=== PATIENT | female | born 1980 | race Two or more races ===

== ENCOUNTER 2019-04-16 06:10 | Inpatient (IN) | payer MEDICAID ==
[~2019-04-16] VITALS: Ht 157.5 cm; Wt 79.8 kg
[2019-04-16] MEDS ORDERED: fentaNYL PF VIAL 100 MCG/2 ML VIAL IV PRN ×3 (06:15)
[2019-04-16] MEDS ORDERED: OXYTOCIN 30 UNIT/500 ML PREMIX 500 ML IV PRN ×3 (06:15→12:45)
[2019-04-16] MEDS ORDERED: CITRIC ACID/SODIUM CITRATE 30 ML SOLUTION. PO PRN (06:15)
[2019-04-16] MEDS ORDERED: ONDANSETRON PF 4 MG/2 ML VIAL. IV PRN (06:15)
[2019-04-16] MEDS ORDERED: 0.9 % SODIUM CHLORIDE 10 ML DISP.SYRIN. IV PRN ×2 (06:15→12:45)
[2019-04-16] MEDS ORDERED: MAG HYDROX/ALUMINUM HYD/SIMETH 30 ML ORAL.SUSP PO PRN ×2 (06:15→12:45)
[2019-04-16] MEDS ORDERED: TERBUTALINE 1 MG/ML VIAL. SQ PRN (06:15)
[2019-04-16] MEDS ORDERED: BUTORPHANOL 2 MG/ML VIAL. IV PRN ×2 (06:15)
[2019-04-16] MEDS ORDERED: IBUPROFEN 400 MG TABLET. PO PRN ×2 (06:15→12:45)
[2019-04-16] MEDS ORDERED: NALBUPHINE 10 MG/ML AMPUL. IV PRN ×2 (06:15)
[2019-04-16] MEDS ORDERED: LIDOCAINE 1% PF 30 ML VIAL. INJ PRN (06:30)
[2019-04-16 07:15] LABS: BILIRUBIN,URINE NEGATIVE (NEG); CLARITY,URINE CLEAR; COLOR,URINE YELLOW; NITRITE,URINE NEGATIVE (NEG); PROTEIN,URINE NEGATIVE (NEG-TRACE); UROBILINOGEN,URINE 0.2 mg/dL (0.2 mg/dL)
[2019-04-16 07:37] LABS: SQUAMOUS EPITHELIAL CELL,UR MOD /LPF
[2019-04-16 07:38] LABS: BACTERIA,URINE MODERATE /HPF (0-FEW); RBC,URINE 0 /HPF (0-2)
[2019-04-16 07:50] VITALS: BP 122/74
[2019-04-16] MEDS ORDERED: AMPICILLIN SODIUM 2 GM in IV NORMAL SALINE 100ML 100 ML IV ONE (08:00)
[2019-04-16 08:02] LABS: BASO % 1 % (0-3); EOS % 1 % (0-3); HEMATOCRIT 36.3 % (36.0-47.0); LYMPH # 1.6 x10^3/uL (1.0-4.8); LYMPH % 26 % (24-48); MEAN CORPUSCULAR HEMOGLOBIN 30 pg (25-35); MEAN CORPUSCULAR HGB CONC 33 g/dL (31-37); MEAN CORPUSCULAR VOLUME 91 fL (79-100); MONO # 0.5 x10^3/uL (0.0-1.1); MONO % 8 % (0-9); NEUT # 4.1 x10^3/uL (1.8-7.7); NEUT % 65 % (31-73); PLATELET COUNT 121 x10^3/uL (140-400); RED BLOOD COUNT 3.99 x10^6/uL (3.50-5.40); RED CELL DISTRIBUTION WIDTH 15.6 % (11.5-14.5); WHITE BLOOD COUNT 6.2 x10^3/uL (4.0-11.0)
[2019-04-16] MEDS: IV RINGERS,LACTATED 1000ML 1,000 ML IV SCH ×2 (08:02→22:30)
--- NOTE | 2019-04-16 09:54 | RAD ---
EXAM: Obstetrics sonogram. HISTORY: presentation. TECHNIQUE: Sonographic imaging of a gravid uterus was performed. COMPARISON: None. FINDINGS: There is a single intrauterine fetus in cephalic presentation with a heart rate of 127 bpm. There is body motion. The anatomy is not formally assessed. There is a grade 2 fundal placenta without evidence of placenta previa. The biparietal diameter is 9.32 cm, corresponding with 37 weeks and 6 days. The head circumference is 34.03 cm, corresponding with 39 weeks and 1 day. The abdominal circumference is 35.79 cm, corresponding with 39 weeks and 5 days. The femoral length is 7.48 cm, corresponding with 38 weeks and 2 days. The estimated gestational age patient combined ultrasound measurements is 38 weeks and 5 days and the estimated weight is 3686 g. This is the 69th percentile for an estimated gestational age of 39 weeks and 1 day based on LMP. The estimated due date is 04/25/2019. IMPRESSION: Single intrauterine fetus in cephalic presentation with a normal heart rate and estimated gestational age based on ultrasound measurements of 38 weeks and 5 days. Electronically signed by: Amanda Lee MD (04/16/2019 9:51 AM) [facility]
--- NOTE | 2019-04-16 11:41 | PDOC1 ---
OB - History Hx of Present Care: Good Care Ultrasounds: Normal mid trimester US Obstetrical Complications: None Medical Complications: None Past Family/Social History * Past Medical, Surgical, Family and Obstetric Histories reviewed from chart. Rubella: Immune RPR/VDRL: Negative GBS Status: Positive HBsAG: Negative OB - Chief Complaint & HPI Date of Admission: Date of Admission: Apr 16, 2019 at 06:10 Chief Complaint/History : 4 Para: 3 EGA: 39 Reason for admission: induction of labor Indication for induction: maternal distance, history of rapid labor Admission Nurse Assessment Rev: Yes OB - Admission Exam Physical Exam Vitals: VS - Last 72 Hours, by Label Date Time Temp Pulse Resp B/P (MAP) Pulse Ox O2 Delivery O2 Flow Rate FiO2 04/16/19 07:50 97.5 68 16 122/74 (90) Room Air 97.5 HEENT: Normal Heart: Regular Rate Lungs: Clear Abdomen: Gravid, Non tender, Soft Extremities: Edema Reflexes: Normal Cervical Dilatation: Fingertip Effacement: 25% Station: Ballotable Membranes: Intact Heart Rate: Normal Accelerations: Accelerations Present Decelerations: No decelerations Contractions on Admission: None Text A: 39 wks IUP IOL maternal distance and h/o rapid labor GBS positive P: Admit IOL pitocin and Pen G for GBS prophylaxis. TOO LAFLEUR Jr, MD Apr 16, 2019 11:41
[2019-04-16] MEDS ORDERED: ROPIVacaine 0.2% PF 10 ML VIAL. ONE ×2 (11:49→12:00)
[2019-04-16] MEDS ORDERED: L&D EPIDURAL SYRINGE 0 ML ONE (11:50)
[2019-04-16] MEDS ORDERED: L&D EPIDURAL 50 ML SYRINGE. ONE (12:00)
[2019-04-16] MEDS ORDERED: miSOPROStol 200 MCG TABLET PR ONE (12:14)
[2019-04-16] MEDS ORDERED: miSOPROStol 200 MCG TABLET ONE (12:21)
[2019-04-16] MEDS ORDERED: MMR per PROTOCOL. MC PRN (12:32)
--- NOTE | 2019-04-16 12:37 | PDOC ---
VAGINAL DELIVERY DATE DATE: 04/16/19 TIME: 12:34 : 4 Para: 3 EDC: Apr 22, 2019 VAGINAL DELIVERY: VTX PLACENTA: Spontaneous 02/02/ SEX: Male WEIGHT 7/15 Nuchal Cord: No Amniotic Fluid: Clear PAIN: Epidural EPISIOTOMY: No EXTENSION: Yes EBL 400cc COMPLICATIONS None CONDITION Stable Signs of Intrauterine Infectio: None Shoulder Dystocia: No DIAGNOSIS TIJULITO Arellano MD Apr 16, 2019 12:37
[2019-04-16] MEDS ORDERED: SIMETHICONE 80 MG TAB.CHEW PO PRN (12:45)
[2019-04-16] MEDS ORDERED: ACETAMINOPHEN 325 MG TABLET. PO PRN (12:45)
[2019-04-16] MEDS ORDERED: PHENYLEPH/MINERAL OIL/PETROLAT RECTAL OINTMENT TUBE. RC PRN (12:45)
[2019-04-16] MEDS ORDERED: BENZOCAINE 20% TOPICAL AEROSOL SPRAY 57GM CAN. TP PRN (12:45)
[2019-04-16] MEDS ORDERED: diphenhydrAMINE HCL 25 MG CAPSULE PO PRN (12:45)
[2019-04-16] MEDS ORDERED: HYDROCORTISONE 1% TOPICAL OINTMENT 30GM TUBE. TP PRN (12:45)
[2019-04-16] MEDS ORDERED: MAGNESIUM HYDROXIDE 2,400 MG/30 ML ORAL.SUSP. PO PRN (12:45)
[2019-04-16] MEDS ORDERED: ZOLPIDEM 5 MG TABLET. PO PRN (12:45)
[2019-04-16] MEDS: IBUPROFEN 400 MG TABLET. PO SCH ×2 (15:14→22:42)
[2019-04-16 16:20] VITALS: BP 113/70
[2019-04-16] MEDS: FERROUS SULFATE 325 MG TABLET. PO SCH (17:00)
[2019-04-16 17:30] VITALS: BP 115/72
[2019-04-16 20:00] VITALS: BP 112/65
[2019-04-16] MEDS: AMPICILLIN SODIUM 1 GM in IV NORMAL SALINE 50ML 50 ML IV SCH (20:00)
[2019-04-17] VITALS: BP 136/62
[2019-04-17] MEDS: AMPICILLIN SODIUM 1 GM in IV NORMAL SALINE 50ML 50 ML IV SCH ×5 (04:00→20:00)
[2019-04-17 06:00] VITALS: BP 111/72
[2019-04-17] MEDS: IBUPROFEN 400 MG TABLET. PO SCH ×3 (06:00→22:00)
[2019-04-17] MEDS: FERROUS SULFATE 325 MG TABLET. PO SCH (07:53)
[2019-04-17 10:30] VITALS: BP 106/69
[2019-04-17] MEDS ORDERED: FLU VAX QS 2019-20 (36MOS+)/PF 0.5 ML SYRINGE. VAX IM ONE (11:00)
[2019-04-17] MEDS ORDERED: DIPHTH,PERTUSS(ACELL),TET TOX 0.5 ML DISP.SYRIN. VAX IM ONE (11:00)
[2019-04-17 15:08] VITALS: BP 119/76
--- NOTE | 2019-04-17 16:25 | PDOC ---
Provider Note Provider Note Doing well VSS uterus NTTP FU in AM JULITO URENA MD Apr 17, 2019 16:25
[2019-04-17] MEDS: ACETAMINOPHEN 325 MG TABLET. PO PRN (19:25)
[2019-04-17 19:58] VITALS: BP 114/70
[2019-04-18 04:00] VITALS: BP 120/73
[2019-04-18] MEDS: IBUPROFEN 400 MG TABLET. PO SCH ×2 (06:00→14:07)
[2019-04-18] MEDS: ACETAMINOPHEN 325 MG TABLET. PO PRN (07:26)
[2019-04-18 10:29] VITALS: BP 117/77
--- NOTE | 2019-04-18 11:01 | NUR ---
OB assessment done by [facility] RN Leisa. This nurse is providing other nursing care for the patient. Pain mainly in BLE in which patient states she "feels like she just got done working out". [facility] nurses on the floor are aware as well. No new concerns noted from the patient at this time.
[2019-04-18 12:31] VITALS: BP 125/73
--- NOTE | 2019-04-18 13:30 | PDOC3 ---
OB DISCHARGE SUMMARY DATE OF ADMISSION: 04/16/19 DATE OF DISCHARGE: 04/18/19 REASON FOR ADMISSION: Induction of labor PROCEDURES: Ultrasound INTRAPARTUM PROCEDURES: Spontanous Vag Deliv PROCEDURES: None OPERATIONS: None DISCHARGE DIAGNOSIS: Term Delivered DISCHARGE INFORMATION: Activity, Diet HOSPITAL COURSE Unremarkable CONDITION AT DISCHARGE Stable JULIOT URENA MD Apr 18, 2019 13:30
[2019-04-18] MEDS ORDERED: NAPR-514 PO (13:31)
[2019-04-18] MEDS ORDERED: HYDR-3164 PO (13:31)
--- NOTE | 2019-04-18 15:17 | RAD ---
EXAM: Bilateral lower extremity venous Doppler sonogram. HISTORY: Pain and swelling. TECHNIQUE: Burgess scale and color Doppler sonographic evaluation of the bilateral lower extremity veins with spectral waveform analysis was performed. FINDINGS: There is normal color flow, normal compressibility and there are normal spectral waveforms in the common femoral, superficial femoral, popliteal, posterior tibial and greater saphenous veins. There are prominent left inguinal lymph nodes, the largest of which measures 3.2 cm in long axis and demonstrates a lobulated contour. IMPRESSION: 1. No Doppler evidence of lower extremity deep venous thrombosis. 2. Left inguinal lymphadenopathy. There is nonspecific and may be reactive in etiology. Follow-up can be performed to confirm resolution. Electronically signed by: Amanda Lee MD (04/18/2019 3:14 PM) [place] [id number]
--- NOTE | 2019-04-18 15:55 | NUR ---
Patient has had complaints of pain in her legs through out the day. Dr Mcclendon ordered to have a Doppler done to check for DVTs. Results came back negative. Results called to Dr Sousa since Dr Mcclendon said to call him if anything was needed prior to 6pm. Dr Sousa stated patient OK to discharge. Will follow up and continue to monitor.
[2019-04-18 16:05] VITALS: BP 118/76
--- NOTE | 2019-04-18 16:52 | NUR ---
Patient left with her and family around 1645. Discharge education was performed by this nurse, [facility] nurse, and nursery nurse prior to discharge. Scripts given for brandon and alberto to patient. No concerns noted about her discharge instructions prior to dismissal.
== END 2019-04-18 16:40 | disposition home or self-care (01) | DRG 807 ==
LOC: 3 SO LND 06:10 → 3 NORTH 16:20
PROVIDERS: ADMIT Specialist; ATTEND Specialist
PROC: 10E0XZZ Delivery of Products of Conception, External Approach (ICD-10-PCS; principal; 2019-04-16)
DX: O99.824 Streptococcus B carrier state complicating childbirth (principal); Z37.0 Single live birth; Z3A.39 39 weeks gestation of pregnancy
CPT/HCPCS: 36415; 76815; 81001; 82947; 85014; 85025; 86592; 86850; 86900; 86901; 87086; 90471; 90686; 90715; 93970; J0290; J2590; J2795; J7120; G0378